=== PATIENT | female | born 2000 | race Caucasian/White ===

== ENCOUNTER 2024-05-25 10:49 | Observation (INO) | payer MEDICAID ==
[~2024-05-25] VITALS: Ht 165.1 cm; Wt 71.1 kg
--- NOTE | 2024-05-25 12:10 | NUR ---
PATIENT ADMITED INTO ROOM 350 VIA POV FROM [place]. A&O. NOTED SOFT B/P IN THE UPPER 80'S TO LOW 90'S SYSTOLIC, ALL OTHER VSS. PATIENT HAD FENTANYL AT [place] AND B/P WENT DOWN WHEN SHE STOOD UP. PATIENT REPORTS SHE NORMALLY HAS LOW B/P AT BASELINE IN THE 90'S TO LOW 100'S. NO COMPLAINTS AT THIS TIME. HEAD TO TOE ASSESSMENT COMPLETE. PATIENT ADMITTED WITH LEFT HAND IV FROM [place]. ORIENTED TO ROOM. CALL LIGHT IN REACH.
[2024-05-25 12:18] VITALS: BP 89/90; PULSE 75; TEMP 97.4
[2024-05-25] MEDS ORDERED: fentaNYL 50 MCG/ML 2 ML VIAL ONE (12:37)
[2024-05-25] MEDS ORDERED: Ketorolac 30 MG/ML VIAL ONE (12:38)
[2024-05-25] MEDS ORDERED: Glycopyrrolate 0.2 MG/ML 1 ML VIAL ONE (12:38)
[2024-05-25] MEDS ORDERED: Ondansetron 4 MG/2 ML VIAL ONE (12:38)
[2024-05-25] MEDS ORDERED: Lidocaine PF 2% (20 MG/ML) 5 ML VIAL ONE (12:38)
[2024-05-25] MEDS ORDERED: dexAMETHasone 10 MG/ML VIAL ONE (12:38)
[2024-05-25] MEDS ORDERED: NORETHINDRONE0.35 MG PO (12:41)
[2024-05-25] MEDS ORDERED: PAXIL 20MG20 MG PO (12:41)
[2024-05-25] MEDS ORDERED: Rocuronium 50 MG/5 ML Multi-Dose VIAL ONE (12:42)
--- NOTE | 2024-05-25 12:58 | NUR ---
PATIENT GOING DOWN TO OR VIA BED WITH AT BEDSIDE. NPO. IV FLUIDS INFUSING VIA GRAVITY INTO LEFT HAND IV. NO ORDERS FOR A CONSENT, BLANK CONSENT ON CHART. AT BEDSIDE. PATIENT NOW OFF FLOOR.
[2024-05-25 13:00] VITALS: BP_SYST 89
[2024-05-25] MEDS ORDERED: fentaNYL 50 MCG/ML 1 ML SYRINGE/VIAL [PACU/SDC ONLY] IV PRN (13:15)
[2024-05-25] MEDS ORDERED: Ondansetron 4 MG/2 ML VIAL IV PRN ×2 (13:15→14:15)
[2024-05-25] MEDS ORDERED: HYDROmorphone 1 MG/1 ML SYRINGE [PACU/SDC ONLY] IV PRN (13:15)
[2024-05-25] MEDS ORDERED: Meperidine 50 MG/ML 1 ML VIAL IV PRN (13:15)
[2024-05-25] MEDS ORDERED: Morphine 2 MG/1 ML VIAL [PACU/SDC ONLY] IV PRN (13:15)
[2024-05-25] MEDS ORDERED: NORCO 325 MG-51 TAB PO (13:21)
[2024-05-25] MEDS ORDERED: Ibuprofen 600 MG TAB PO PRN (14:15)
[2024-05-25 15:30] VITALS: BP 98/60; PULSE 90; TEMP 97
[2024-05-25 15:45] VITALS: BP 92/60; PULSE 76; TEMP 97.4
[2024-05-25 16:00] VITALS: BP 100/61; PULSE 74
--- NOTE | 2024-05-25 16:50 | NUR ---
PATIENT MEET DISCHARGE CRITERIA. EAT/DRINKING/VOIDING SUFFICENT AMOUNTS. NO C/O N/V. DC'D IV SITE AND COVERED SITE WITH GAUZE & COBAN. NO C/O PAIN. GAVE DISCHARGE INSTRUCTIONS, E-SCRIPTS SENT, AND DISCUSSED F/U APT IN [place]. ANSWERED QUESTIONS/CONCERNS. PATIENT IS DRESSED, PACKED AND ESCORTED OUT VIA WC TO PERSONAL VEHICLE WITH .
== END 2024-05-25 16:50 | disposition home or self-care (01) ==
LOC: SURG 10:49
PROVIDERS: ADMIT Surgery
DX: K35.80 Unspecified acute appendicitis (principal); Z87.891 Personal history of nicotine dependence
CPT/HCPCS: G0378; G0379; J1100; J1885; J2405; J2704; J3010